=== PATIENT | male | born 1950 | race Caucasian/White ===

== ENCOUNTER 2018-11-23 16:46 | Inpatient (IN) | payer MEDICARE, OTHER ==
[~2018-11-23] VITALS: Ht 180.3 cm; Wt 83.5 kg
[~2018-11-23 16:46] MED LIST: BACLOFEN10 MG PO; NAPROSYN500 MG PO
[2018-11-23 17:28] LABS: HEMATOCRIT 56.3 % (39.0-50.0); HEMOGLOBIN 16.8 g/dl (14.0-18.0); IMMATURE GRANULOCYTES 0.4 % (0.0-5.0); MEAN CELL VOLUME 84.5 fL CALC (80.0-100.0); MEAN CORPUSCULAR HGB 25.2 pG CALC (26.0-32.0); MEAN CORPUSCULAR HGB CONC 29.8 g/L CALC (32.0-36.0); NEUT# 6.52 thou/uL (1.82-7.42); RED BLOOD COUNT 6.66 mill/uL (4.70-6.10); RED CELL DISTRI WIDTH 16.2 % (11.5-15.5)
[2018-11-23 17:41] LABS: ANION GAP 11 (6-22 (CALC)); BUN 31 mg/dL (8-23); BUN/CREATININE RATIO 36 (12-20 (CALC)); CARBON DIOXIDE 38 mmol/l (22-30); CHLORIDE 97 mmol/l (95-108); CREATININE 0.9 mg/dL (0.7-1.3); GFR > 60 ML/MIN (>=60 (CALC)); GFR FOR AFR.AMER. > 60 ML/MIN (>=60 (CALC)); POTASSIUM 5.1 mmol/l (3.5-5.1); SODIUM 140 mmol/l (137-146)
[2018-11-23 20:15] LABS: URINE BILIRUBIN - DIPSTICK NEGATIVE (NEGATIVE); URINE BLOOD DIPSTICK NEGATIVE (NEGATIVE); URINE COLOR YELLOW; URINE GLUCOSE - DIPSTICK NEGATIVE (NEGATIVE); URINE KETONE NEGATIVE (NEGATIVE); URINE LEUK ESTERASE NEGATIVE (NEGATIVE); URINE NITRITE - DIPSTICK NEGATIVE (Negative); URINE PH 6.5 (4.5-8.0); URINE PROTEIN - DIPSTICK NEGATIVE (NEG-TRACE); URINE SPECIFIC GRAVITY <=1.005; URINE UROBILINOGEN - DIPSTICK 0.2 E.U./dL (0.2)
[2018-11-23 20:43] VITALS: BP 180/90
[2018-11-24] VITALS (8 sets, daily range): BP systolic 124–168; BP diastolic 63–83
[2018-11-24 06:38] LABS: MAGNESIUM 2.1 mg/dL (1.6-2.3)
[2018-11-24 07:30] LABS: HEMATOCRIT 55.6 % (39.0-50.0); HEMOGLOBIN 16.7 g/dl (14.0-18.0); MEAN CELL VOLUME 83.5 fL CALC (80.0-100.0); MEAN CORPUSCULAR HGB 25.1 pG CALC (26.0-32.0); RED BLOOD COUNT 6.66 mill/uL (4.70-6.10); RED CELL DISTRI WIDTH 15.7 % (11.5-15.5)
[2018-11-24 07:37] LABS: ANION GAP 12 (6-22 (CALC)); BUN 26 mg/dL (8-23); BUN/CREATININE RATIO 35 (12-20 (CALC)); CARBON DIOXIDE 38 mmol/l (22-30); CHLORIDE 94 mmol/l (95-108); CREATININE 0.8 mg/dL (0.7-1.3); GFR > 60 ML/MIN (>=60 (CALC)); GFR FOR AFR.AMER. > 60 ML/MIN (>=60 (CALC)); POTASSIUM 4.7 mmol/l (3.5-5.1); SODIUM 139 mmol/l (137-146)
[2018-11-25 04:36] VITALS: BP 144/83
[2018-11-25 05:35] LABS: HEMATOCRIT 57.2 % (39.0-50.0); IMMATURE GRANULOCYTES 0.6 % (0.0-5.0); MEAN CELL VOLUME 84.5 fL CALC (80.0-100.0); MEAN CORPUSCULAR HGB 25.1 pG CALC (26.0-32.0); MEAN CORPUSCULAR HGB CONC 29.7 g/L CALC (32.0-36.0); NEUT# 14.6 thou/uL (1.82-7.42); RED BLOOD COUNT 6.77 mill/uL (4.70-6.10); RED CELL DISTRI WIDTH 16.1 % (11.5-15.5)
[2018-11-25 05:59] LABS: BUN 31 mg/dL (8-23); BUN/CREATININE RATIO 40 (12-20 (CALC)); CHLORIDE 90 mmol/l (95-108); CREATININE 0.8 mg/dL (0.7-1.3); GFR > 60 ML/MIN (>=60 (CALC)); GFR FOR AFR.AMER. > 60 ML/MIN (>=60 (CALC)); MAGNESIUM 2.1 mg/dL (1.6-2.3); POTASSIUM 4.5 mmol/l (3.5-5.1); SODIUM 138 mmol/l (137-146)
[2018-11-25 06:10] LABS: ANION GAP 11 (6-22 (CALC))
[2018-11-25 06:12] LABS: CARBON DIOXIDE 42 mmol/l (22-30)
[2018-11-25 08:55] VITALS: BP 140/69
[2018-11-25 11:15] VITALS: BP 102/70
[2018-11-25 15:05] VITALS: BP 121/72
[2018-11-25 19:00] VITALS: BP 128/74
[2018-11-26] VITALS (7 sets, daily range): BP systolic 122–144; BP diastolic 76–85
[2018-11-26 06:03] LABS: HEMATOCRIT 57.7 % (39.0-50.0); HEMOGLOBIN 16.9 g/dl (14.0-18.0); MEAN CELL VOLUME 85.9 fL CALC (80.0-100.0); MEAN CORPUSCULAR HGB 25.1 pG CALC (26.0-32.0); MEAN CORPUSCULAR HGB CONC 29.3 g/L CALC (32.0-36.0); NEUT# 14.15 thou/uL (1.82-7.42); RED BLOOD COUNT 6.72 mill/uL (4.70-6.10); RED CELL DISTRI WIDTH 15.8 % (11.5-15.5)
[2018-11-26 06:36] LABS: ALBUMIN 3.5 g/dL (3.2-5.0); ALKALINE PHOSPHATASE 63 u/l (38-126); AMYLASE 56 u/l (30-110); BILIRUBIN, TOTAL 0.4 mg/dL (0.0-1.4); BUN 31 mg/dL (8-23); BUN/CREATININE RATIO 50 (12-20 (CALC)); CHLORIDE 89 mmol/l (95-108); CREATININE 0.6 mg/dL (0.7-1.3); GFR > 60 ML/MIN (>=60 (CALC)); GFR FOR AFR.AMER. > 60 ML/MIN (>=60 (CALC)); LIPASE 114 u/l (23-300); MAGNESIUM 2.3 mg/dL (1.6-2.3); POTASSIUM 4.5 mmol/l (3.5-5.1); SGOT/AST 19 u/l (19-48); SODIUM 138 mmol/l (137-146); TOTAL PROTEIN 6.2 g/dL (6.3-8.2)
[2018-11-26 06:48] LABS: ANION GAP 12 (6-22 (CALC))
[2018-11-26 06:50] LABS: CARBON DIOXIDE 42 mmol/l (22-30)
[2018-11-27] VITALS (9 sets, daily range): BP systolic 117–145; BP diastolic 64–85
[2018-11-27 06:01] LABS: HEMATOCRIT 59.6 % (39.0-50.0); IMMATURE GRANULOCYTES 0.7 % (0.0-5.0); MEAN CELL VOLUME 87.5 fL CALC (80.0-100.0); MEAN CORPUSCULAR HGB CONC 28.5 g/L CALC (32.0-36.0); NEUT# 11.91 thou/uL (1.82-7.42); RED BLOOD COUNT 6.81 mill/uL (4.70-6.10); RED CELL DISTRI WIDTH 16.3 % (11.5-15.5)
[2018-11-27 06:26] LABS: ALBUMIN 3.4 g/dL (3.2-5.0); ALKALINE PHOSPHATASE 56 u/l (38-126); BILIRUBIN, TOTAL 0.5 mg/dL (0.0-1.4); BUN 29 mg/dL (8-23); BUN/CREATININE RATIO 43 (12-20 (CALC)); CHLORIDE 90 mmol/l (95-108); CREATININE 0.7 mg/dL (0.7-1.3); GFR > 60 ML/MIN (>=60 (CALC)); GFR FOR AFR.AMER. > 60 ML/MIN (>=60 (CALC)); MAGNESIUM 2.4 mg/dL (1.6-2.3); POTASSIUM 4.6 mmol/l (3.5-5.1); SGOT/AST 26 u/l (19-48); SODIUM 139 mmol/l (137-146); TOTAL PROTEIN 6.1 g/dL (6.3-8.2)
[2018-11-27 06:32] LABS: ANION GAP 9 (6-22 (CALC))
[2018-11-27 06:47] LABS: CARBON DIOXIDE 45 mmol/l (22-30)
[2018-11-28 04:03] VITALS: BP 133/78
[2018-11-28 05:43] LABS: BUN 35 mg/dL (8-23); BUN/CREATININE RATIO 49 (12-20 (CALC)); CHLORIDE 90 mmol/l (95-108); CREATININE 0.7 mg/dL (0.7-1.3); GFR > 60 ML/MIN (>=60 (CALC)); GFR FOR AFR.AMER. > 60 ML/MIN (>=60 (CALC)); POTASSIUM 4.7 mmol/l (3.5-5.1); SODIUM 140 mmol/l (137-146)
[2018-11-28 05:49] LABS: ANION GAP 7 (6-22 (CALC))
[2018-11-28 05:50] LABS: CARBON DIOXIDE 48 mmol/l (22-30)
[2018-11-28 07:49] VITALS: BP 161/82
[2018-11-28 11:38] VITALS: BP 130/80
[2018-11-28 16:05] VITALS: BP 141/82
[2018-11-28 19:00] VITALS: BP 155/93
[2018-11-29 00:22] VITALS: BP 141/83
[2018-11-29 04:15] VITALS: BP 153/83
[2018-11-29 05:04] LABS: HEMATOCRIT 59.4 % (39.0-50.0); HEMOGLOBIN 17.3 g/dl (14.0-18.0); IMMATURE GRANULOCYTES 0.7 % (0.0-5.0); MEAN CORPUSCULAR HGB 24.7 pG CALC (26.0-32.0); MEAN CORPUSCULAR HGB CONC 29.1 g/L CALC (32.0-36.0); NEUT# 9.58 thou/uL (1.82-7.42); RED BLOOD COUNT 6.99 mill/uL (4.70-6.10); RED CELL DISTRI WIDTH 15.7 % (11.5-15.5)
[2018-11-29 05:29] LABS: ALBUMIN 3.3 g/dL (3.2-5.0); ALKALINE PHOSPHATASE 53 u/l (38-126); BUN 31 mg/dL (8-23); BUN/CREATININE RATIO 49 (12-20 (CALC)); CHLORIDE 88 mmol/l (95-108); CREATININE 0.6 mg/dL (0.7-1.3); GFR > 60 ML/MIN (>=60 (CALC)); GFR FOR AFR.AMER. > 60 ML/MIN (>=60 (CALC)); MAGNESIUM 2.4 mg/dL (1.6-2.3); POTASSIUM 4.5 mmol/l (3.5-5.1); SGOT/AST 28 u/l (19-48); SODIUM 139 mmol/l (137-146); TOTAL PROTEIN 5.7 g/dL (6.3-8.2)
[2018-11-29 05:41] LABS: ANION GAP 8 (6-22 (CALC)); CARBON DIOXIDE 48 mmol/l (22-30)
[2018-11-29 06:58] VITALS: BP 146/99
[2018-11-29 07:41] VITALS: BP 165/96
[2018-11-29 10:55] VITALS: BP 158/92
[2018-11-29] MEDS ORDERED: TAMSULOSIN HCL0.4 MG PO (11:41)
[2018-11-29] MEDS ORDERED: LOSARTAN POT50 MG PO (11:41)
[2018-11-29] MEDS ORDERED: LOPRESSOR 550 MG/TAB PO (11:41)
[2018-11-29] MEDS ORDERED: LIBRIUM25 M1 PO (11:42)
[2018-11-29] MEDS ORDERED: ZALEPLON5 MG PO (11:42)
[2018-11-29] MEDS ORDERED: PANTOPRAZOLE SO40 M1 PO (11:45)
[2018-11-29] MEDS ORDERED: Levaquin PO (11:45)
[2018-11-29] MEDS ORDERED: FINASTERIDE5 MG PO (11:45)
[2018-11-29] MEDS ORDERED: MEDDOSEPAK PO (11:46)
== END 2018-11-29 15:46 | DRG 291 ==
LOC: ED 16:46 → EDBD 17:56 → ED 17:56 → ED-I 19:10 → ED 19:29 → MS2 19:30
PROVIDERS: Family Medicine; Internal Medicine Nephrology; Nurse Practitioner Family; ADMIT Internal Medicine; ATTEND Internal Medicine
PROC: 0T9B70Z Drainage of Bladder with Drainage Device, Via Natural or Artificial Opening (ICD-10-PCS; principal; 2018-11-23)
PROC: 0T9B70Z Drainage of Bladder with Drainage Device, Via Natural or Artificial Opening (ICD-10-PCS; 2018-11-26)
DX: I11.0 Hypertensive heart disease with heart failure (principal); I50.21 Acute systolic (congestive) heart failure; J18.9 Pneumonia, unspecified organism; J96.02 Acute respiratory failure with hypercapnia; J96.01 Acute respiratory failure with hypoxia; E87.3 Alkalosis; I47.2 Ventricular tachycardia; J43.9 Emphysema, unspecified; N40.1 Benign prostatic hyperplasia with lower urinary tract symptoms; R35.0 Frequency of micturition; R35.1 Nocturia; R39.15 Urgency of urination; R39.12 Poor urinary stream; R39.198 Other difficulties with micturition; R33.9 Retention of urine, unspecified; I36.1 Nonrheumatic tricuspid (valve) insufficiency; Z72.89 Other problems related to lifestyle; Z87.891 Personal history of nicotine dependence
CPT/HCPCS: J1650; J2060; Q9967

== ENCOUNTER 2021-02-04 10:05 | Day surgery (SDC) | payer MEDICARE, OTHER ==
[~2021-02-04 10:05] MED LIST changes: +ALDACTONE25 MG PO; +ASPIRIN81 MG PO; +FINASTERIDE5 MG PO; +LASIX 40 MG TAB40 MG PO; +LIBRIUM25 M1 PO; +LOPRESSOR 550 MG/TAB PO; +LOSARTAN POT50 MG PO; +LOSARTAN POTASS25 MG PO; +Levaquin PO; +MEDDOSEPAK PO; +PANTOPRAZOLE SO40 M1 PO; +PROSCAR5 MG PO; +TAMSULOSIN HCL0.4 MG PO; +ZALEPLON5 MG PO
[2021-02-04 14:37] VITALS: BP 137/68
[2021-03-28] MEDS ORDERED: TAMSULOSIN0.4 MG PO (10:49)
== END 2021-02-04 14:55 | disposition home or self-care (01) ==
LOC: ORM 10:05
PROVIDERS: ATTEND Urology
PROC: 0VB08ZZ Excision of Prostate, Via Natural or Artificial Opening Endoscopic (ICD-10-PCS; principal; 2021-02-04)
DX: N40.1 Benign prostatic hyperplasia with lower urinary tract symptoms (principal); N13.8 Other obstructive and reflux uropathy; R33.8 Other retention of urine; I11.0 Hypertensive heart disease with heart failure; I50.9 Heart failure, unspecified; I25.10 Atherosclerotic heart disease of native coronary artery without angina pectoris; J43.9 Emphysema, unspecified; K21.9 Gastro-esophageal reflux disease without esophagitis; I42.9 Cardiomyopathy, unspecified; Z87.891 Personal history of nicotine dependence
CPT/HCPCS: J2710

== ENCOUNTER 2021-04-28 06:58 | Day surgery (SDC) | payer MEDICARE, OTHER ==
[~2021-04-28] VITALS: Ht 180.3 cm; Wt 77.1 kg
[~2021-04-28 06:58] MED LIST changes: +TAMSULOSIN0.4 MG PO
[2021-04-28 08:59] VITALS: BP 157/71
== END 2021-04-28 09:03 | disposition home or self-care (01) ==
LOC: ENDO 06:58 → ORM 08:00 → ENDO 09:03
PROVIDERS: ATTEND Surgery
PROC: 0DBH8ZX Excision of Cecum, Via Natural or Artificial Opening Endoscopic, Diagnostic (ICD-10-PCS; principal; 2021-04-28)
DX: D12.0 Benign neoplasm of cecum (principal); K57.30 Diverticulosis of large intestine without perforation or abscess without bleeding; K64.8 Other hemorrhoids; I50.9 Heart failure, unspecified; Z80.0 Family history of malignant neoplasm of digestive organs